=== PATIENT | female | born 1990 | race Caucasian/White ===

== ENCOUNTER → 2020-04-27 | Outpatient (CLI) | payer OTHER ==
[~2020-04-27] MED LIST: ACET325; ALBU90I INH; ALBU90OI INH; AZIT250 PO; Albuterol17 G1 INH; BCP; CEFD300 PO; CEPH500 PO; CLON.5 PO; CYCL10 PO; DIAZ5 PO; DIPATR PO; Esgic Tablet1 EACH PO; FLUO10 PO; HYDACE5 PO; HYDACE5325 PO; IBUP800 PO; Imitrex25 MG PO; LOPE2C PO; METCAR750 PO; MIRENA; MULVITMINE PO; Mirena1 EACH VG; ONDA4ODT MM; OXYACE5T PO; PRED10 PO; PROM25 PO; Percocet 5-3251 EACH PO; SPACE CHAMBER1 EACH MC; Sudafed30 MG PO; Zofran Odt8 MG SL; [UNRECOGNIZED DRUG - OTHER]
[2020-04-29 14:10] LABS: HPV 16 Negative (Negative); HPV 18 Negative (Negative); HPV OTHER HR TYPES Negative (Negative)
== END ==
LOC: LAB SHORT 12:34 → LAB 12:34
PROVIDERS: Obstetrics & Gynecology
DX: Z12.4 Encounter for screening for malignant neoplasm of cervix (principal)
CPT/HCPCS: 87624; G0123

== ENCOUNTER → 2021-10-03 | Outpatient (CLI) | payer OTHER | END | disposition home or self-care (01) | LOC: LAB SHORT 14:22 | DX: Z34.83 Encounter for supervision of other normal pregnancy, third trimester (principal); Z3A.36 36 weeks gestation of pregnancy | CPT/HCPCS: 87081; 87150 ==

== ENCOUNTER 2021-10-25 05:46 | Inpatient (IN) | payer OTHER ==
[~2021-10-25] VITALS: Ht 160 cm; Wt 113.6 kg
[2021-10-25 06:01] LABS: BASOPHILS ABSOLUTE AUTO 0.02 K/mm3 (0.00-0.23); BASOPHILS PERCENT AUTO 0 % (0-2); EOSINOPHILS ABSOLUTE AUTO 0.11 K/mm3 (0.00-0.68); EOSINOPHILS PERCENT AUTO 1 % (0-6); Hematocrit 38.6 % (33.0-51.0); Hemoglobin 12.8 g/dL (11.5-16.0); IMMATURE GRAN ABSOLUTE AUTO 0.08 K/mm3 (0.00-0.10); IMMATURE GRAN PERCENT AUTO 1 % (0-1); LYMPHOCYTES ABSOLUTE AUTO 2.14 K/mm3 (0.84-5.20); LYMPHOCYTES PERCENT AUTO 17 % (21-46); MONOCYTES ABSOLUTE AUTO 0.69 K/mm3 (0.16-1.47); MONOCYTES PERCENT AUTO 6 % (4-13); Mean Corpuscular HGB 31.7 pg (26.0-34.0); Mean Corpuscular HGB Conc 33.2 g/dL (31.5-36.5); Mean Corpuscular Volume 96 fL (80-100); Mean Platelet Volume 9.9 fL (9.1-12.4); NEUTROPHILS ABSOLUTE AUTO 9.29 K/mm3 (1.96-9.15); NEUTROPHILS PERCENT AUTO 75 % (41-73); Platelet Count 301 K/mm3 (150-400); RDW Coefficient Variation 13.1 % (11.7-14.2); RDW Standard Deviation 45.7 fL (35.1-46.3); Red Blood Cell Count 4.04 M/mm3 (3.80-5.20); White Blood Cell Count 12.33 K/mm3 (4.00-11.30)
[2021-10-25] MEDS ORDERED: ALLERCLEAR10 MG PO (06:10)
[2021-10-25] MEDS ORDERED: PRENATAL TABLE1 EAC2 PO (06:11)
--- NOTE | 2021-10-25 08:15 | NUR ---
10/25/21 0815 Kacey Cook VIABLE FEMALE BORN AT 0801. CORD BLOOD COLLECTED AND GIVEN TO [facility] NURSE.
--- NOTE | 2021-10-25 11:03 | NUR ---
ABDOMINAL BINDER APPLIED AT 1030, PT STATES SHE FEELS RELIEF IMMEDIATELY AND LOVES THIS ABDOMINAL BINDER
--- NOTE | 2021-10-25 12:02 | NUR ---
patient requested to go outside to smoke and wondered what time she could go. this nurse educated her on the contraindications of smoking and oob prior to end of recovery period. This nurse offered patient nicotine patch, pt refused but stated she will wait to smoke. SCDs in place and on.
--- NOTE | 2021-10-25 12:36 | NUR ---
assumed care of mom and baby
--- NOTE | 2021-10-25 12:55 | NUR ---
pt thought she pooped herself and is painful of an 8/10, reports was trying to be tough saying pain not that bad, then just crept up on her, checked for pooping herself was just some gas she passed has scant vag bleeding witha firm fundus
[2021-10-25] MEDS ORDERED: Percocet 5-3251 EACH PO (13:21)
[2021-10-25] MEDS ORDERED: IBUP800 PO (13:22)
--- NOTE | 2021-10-25 15:10 | NUR ---
pt to a wheelchair to go out and smoke her vape pen, declines a nicotine patch, aware [facility] smoking [facility], randy left in, pt is aware that is she gets painful we dont have alot of pain meds options, she still wants to smoke, current pain 08/28
--- NOTE | 2021-10-25 18:12 | NUR ---
reports doing well
[2021-10-26 06:11] LABS: BASOPHILS ABSOLUTE AUTO 0.03 K/mm3 (0.00-0.23); BASOPHILS PERCENT AUTO 0 % (0-2); EOSINOPHILS ABSOLUTE AUTO 0.13 K/mm3 (0.00-0.68); EOSINOPHILS PERCENT AUTO 1 % (0-6); Hematocrit 34.1 % (33.0-51.0); Hemoglobin 11.4 g/dL (11.5-16.0); IMMATURE GRAN ABSOLUTE AUTO 0.04 K/mm3 (0.00-0.10); IMMATURE GRAN PERCENT AUTO 0 % (0-1); LYMPHOCYTES ABSOLUTE AUTO 1.94 K/mm3 (0.84-5.20); LYMPHOCYTES PERCENT AUTO 17 % (21-46); MONOCYTES PERCENT AUTO 7 % (4-13); Mean Corpuscular HGB 31.6 pg (26.0-34.0); Mean Corpuscular HGB Conc 33.4 g/dL (31.5-36.5); Mean Corpuscular Volume 95 fL (80-100); Mean Platelet Volume 9.8 fL (9.1-12.4); NEUTROPHILS ABSOLUTE AUTO 8.68 K/mm3 (1.96-9.15); NEUTROPHILS PERCENT AUTO 75 % (41-73); Platelet Count 261 K/mm3 (150-400); RDW Coefficient Variation 13.2 % (11.7-14.2); RDW Standard Deviation 45.5 fL (35.1-46.3); Red Blood Cell Count 3.61 M/mm3 (3.80-5.20); White Blood Cell Count 11.62 K/mm3 (4.00-11.30)
--- NOTE | 2021-10-27 00:30 | NUR ---
RETOOK PATIENT'S BLOOD PRESSURE 132/65. PATIENT HAD BEEN MOVING HER ARM DURING INITIAL ELEVATED BLOOD PRESSURE.
--- NOTE | 2021-10-27 10:44 | NUR ---
DISCHARGE INSTRUCTIONS REVIEWED AND SIGNED. QUESTIONS ANSWERED. BANDS MATCHED WITH .
== END 2021-10-27 11:25 | disposition home or self-care (01) | DRG 785 ==
LOC: BC 05:46
PROVIDERS: ADMIT Obstetrics & Gynecology
PROC: 10D00Z1 Extraction of Products of Conception, Low, Open Approach (ICD-10-PCS; principal; 2021-10-25 07:30)
PROC: 0UT70ZZ Resection of Bilateral Fallopian Tubes, Open Approach (ICD-10-PCS; 2021-10-25 07:30)
DX: O34.219 Maternal care for unspecified type scar from previous cesarean delivery (principal); O34.211 Maternal care for low transverse scar from previous cesarean delivery; N85.8 Other specified noninflammatory disorders of uterus; Z37.0 Single live birth; Z30.2 Encounter for sterilization; O99.334 Smoking (tobacco) complicating childbirth; F17.210 Nicotine dependence, cigarettes, uncomplicated; O69.81X0 Labor and delivery complicated by cord around neck, without compression, not applicable or unspecified; O99.214 Obesity complicating childbirth; E66.01 Morbid (severe) obesity due to excess calories; Z88.0 Allergy status to penicillin; Z3A.39 39 weeks gestation of pregnancy
CPT/HCPCS: 36415; 85025; 86850; 86900; 86901; 88302; A9270; J0694; J1100; J1885; J2370; J2405; J2590; J2704; J2765; J3010; J7120